=== PATIENT | female | born 1985 | race Caucasian/White ===

== ENCOUNTER → 2019-01-17 | Outpatient (CLI) | payer BC ==
[~2019-01-17] MED LIST: CEPH500 PO; HYDACE5 PO; PREN-16 PO
[2019-01-17 14:05] LABS: Alanine Aminotransfer (ALT/SGP 23 U/L (12-78); Albumin/Globulin Ratio 1.2 (0.8-1.8); Alk Phos 50 U/L (50-136); Anion Gap 3 mmol/L (6-16); Aspartate Aminotrans (AST/SGOT 19 U/L (12-37); Bilirubin, Total 0.7 mg/dL (0.1-1.0); Blood Urea Nitrogen 12 mg/dL (8-24); Bun/Creatinine Ratio 16.8 (12.0-20.0); CHOL/HDL RATIO 3.7; CO2, Blood 26 mmol/L (21-32); Calcium, Blood 8.7 mg/dL (8.5-10.1); Chloride, Blood 109 mmol/L (98-108); Cholesterol 191 mg/dL (50-200); Creatinine, Blood 0.72 mg/dL (0.40-1.00); Globulin, Blood 3.3 g/dL (2.2-4.0); Glomerular Filtration Rate >60 (60-); Glucose, Blood 88 mg/dL (70-99); HDL Cholesterol 52 mg/dL (>39); LDL/HDL RATIO 2.4; Low Density Lipoprotein Chol 126 mg/dL (0-110); Sodium, Blood 138 mmol/L (136-145); Total Protein, Blood 7.3 g/dL (6.4-8.2); Triglycerides 64 mg/dL (30-140); Very Low Density Lipoprot Chol 12 mg/dL (6-28)
== END ==
LOC: LAB SHORT 13:33 → LAB 13:33
PROVIDERS: Hospitalist
DX: Z00.00 Encounter for general adult medical examination without abnormal findings (principal)
CPT/HCPCS: 80053; 80061

== ENCOUNTER → 2021-09-08 | Outpatient (CLI) | payer BC ==
[2021-09-08 15:37] LABS: BASOPHILS ABSOLUTE AUTO 0.03 K/mm3 (0.00-0.23); BASOPHILS PERCENT AUTO 1 % (0-2); EOSINOPHILS ABSOLUTE AUTO 0.08 K/mm3 (0.00-0.68); EOSINOPHILS PERCENT AUTO 1 % (0-6); Hematocrit 39.5 % (33.0-51.0); Hemoglobin 13.4 g/dL (11.5-16.0); IMMATURE GRAN ABSOLUTE AUTO 0.01 K/mm3 (0.00-0.10); IMMATURE GRAN PERCENT AUTO 0 % (0-1); LYMPHOCYTES ABSOLUTE AUTO 1.43 K/mm3 (0.84-5.20); LYMPHOCYTES PERCENT AUTO 25 % (21-46); MONOCYTES PERCENT AUTO 10 % (4-13); Mean Corpuscular HGB 32.5 pg (26.0-34.0); Mean Corpuscular HGB Conc 33.9 g/dL (31.5-36.5); Mean Corpuscular Volume 96 fL (80-100); Mean Platelet Volume 10.8 fL (9.1-12.4); NEUTROPHILS ABSOLUTE AUTO 3.69 K/mm3 (1.96-9.15); NEUTROPHILS PERCENT AUTO 63 % (41-73); Platelet Count 193 K/mm3 (150-400); RDW Coefficient Variation 11.5 % (11.7-14.2); RDW Standard Deviation 40.5 fL (35.1-46.3); Red Blood Cell Count 4.12 M/mm3 (3.80-5.20); White Blood Cell Count 5.84 K/mm3 (4.00-11.30)
[2021-09-08 16:23] LABS: Alanine Aminotransfer (ALT/SGP 38 U/L (12-78); Albumin, Blood 3.7 g/dL (3.4-5.0); Albumin/Globulin Ratio 1.1 (0.8-1.8); Alk Phos 55 U/L (50-136); Anion Gap 5 mmol/L (6-16); Aspartate Aminotrans (AST/SGOT 26 U/L (12-37); Bilirubin, Total 0.6 mg/dL (0.1-1.0); Blood Urea Nitrogen 10 mg/dL (8-24); Bun/Creatinine Ratio 12.1 (12.0-20.0); CO2, Blood 28 mmol/L (21-32); CPK Creatine Kinase 245 U/L (26-193); Calcium, Blood 8.5 mg/dL (8.5-10.1); Chloride, Blood 106 mmol/L (98-108); Creatinine, Blood 0.82 mg/dL (0.40-1.00); Globulin, Blood 3.4 g/dL (2.2-4.0); Glomerular Filtration Rate >60 (60-); Glucose, Blood 94 mg/dL (70-99); Potassium, Blood 4.1 mmol/L (3.5-5.5); Sodium, Blood 139 mmol/L (136-145); Total Protein, Blood 7.1 g/dL (6.4-8.2)
== END ==
LOC: LAB SHORT 11:25 → LAB 11:25
PROVIDERS: Hospitalist
DX: E55.9 Vitamin D deficiency, unspecified (principal); R53.83 Other fatigue; M79.10 Myalgia, unspecified site
CPT/HCPCS: 80053; 82306; 82550; 84443; 85025; 85651

== ENCOUNTER 2024-01-06 06:32 | Day surgery (SDC) | payer BC ==
[~2024-01-06] VITALS: Ht 169 cm; Wt 87.7 kg
[2024-01-06] VITALS (18 sets, daily range): BP systolic 112–135; BP diastolic 36–83
[~2024-01-06 06:32] MED LIST changes: +MULVITA PO
[2024-01-06] MEDS ORDERED: Lactated Ringer's 1,000 ML IV SCH ×2 (06:40→10:15)
[2024-01-06] MEDS ORDERED: CeFAZolin Sodium 2,000 MG in NS 100 ML IV SCH (06:40)
[2024-01-06] MEDS ORDERED: Magnesium250 MG PO (07:18)
[2024-01-06] MEDS ORDERED: THERA-D2000 UNIT PO (07:18)
[2024-01-06] MEDS ORDERED: propofoL 20 ML IV ONE (07:34)
[2024-01-06] MEDS ORDERED: FentaNYL Citrate 50 MCG/ML 2 ML Injection ONE ×2 (07:35→09:06)
[2024-01-06] MEDS ORDERED: Bupivacaine 0.5% HCl 5 MG/ML 30MLVIAL ONE (07:38)
[2024-01-06] MEDS ORDERED: EpiNEPhrine 1 MG/1 ML 1ML Vial ONE (07:50)
[2024-01-06] MEDS ORDERED: Dexamethasone Sod Phos 10 MG/ML 1ML VIAL ONE (08:35)
[2024-01-06] MEDS ORDERED: Ondansetron HCl 2 MG / ML 2ML Vial ONE (09:20)
[2024-01-06] MEDS ORDERED: Sugammadex Sodium 200 MG/2ML SDV (100 MG/ML) ONE (09:20)
[2024-01-06] MEDS ORDERED: Simethicone 80 MG Chew PO PRN (10:20)
[2024-01-06] MEDS ORDERED: DiphenhydrAMINE HCL 25 MG Cap PO PRN (10:20)
[2024-01-06] MEDS ORDERED: OxyCODONE HCL 5 MG TAB PO PRN (10:20)
[2024-01-06] MEDS ORDERED: Ondansetron HCl 2 MG / ML 2ML Vial IV PRN (10:20)
[2024-01-06] MEDS ORDERED: FentaNYL Citrate 50 MCG/ML 2 ML Injection IV PRN (10:20)
[2024-01-06] MEDS ORDERED: Ibuprofen 400 MG Tab PO PRN (10:20)
[2024-01-06] MEDS ORDERED: Acetaminophen 325 MG TABLET PO PRN (10:20)
[2024-01-06] MEDS ORDERED: HYDROcodone 10-APAP 325 TAB PO PRN (10:20)
[2024-01-06] MEDS ORDERED: Ketorolac Tromethamine 30mg Vial ONE (10:27)
[2024-01-06] MEDS ORDERED: Percocet 5-3251 EACH PO (11:36)
[2024-01-06] MEDS ORDERED: IBU800 MG PO (11:36)
[2024-01-06] MEDS ORDERED: Ketorolac Tromethamine 30mg Vial IV SCH (12:00)
[2024-01-06 13:19] LABS: BASOPHILS ABSOLUTE AUTO 0.02 K/mm3 (0.00-0.23); BASOPHILS PERCENT AUTO 0 % (0-2); EOSINOPHILS PERCENT AUTO 0 % (0-6); Hematocrit 37.4 % (33.0-51.0); Hemoglobin 13.2 g/dL (11.5-16.0); IMMATURE GRAN ABSOLUTE AUTO 0.03 K/mm3 (0.00-0.10); IMMATURE GRAN PERCENT AUTO 0 % (0-1); LYMPHOCYTES ABSOLUTE AUTO 0.46 K/mm3 (0.84-5.20); LYMPHOCYTES PERCENT AUTO 4 % (21-46); MONOCYTES ABSOLUTE AUTO 0.09 K/mm3 (0.16-1.47); MONOCYTES PERCENT AUTO 1 % (4-13); Mean Corpuscular HGB 32.9 pg (26.0-34.0); Mean Corpuscular HGB Conc 35.3 g/dL (31.5-36.5); Mean Corpuscular Volume 93 fL (80-100); NEUTROPHILS ABSOLUTE AUTO 11.85 K/mm3 (1.96-9.15); NEUTROPHILS PERCENT AUTO 95 % (41-73); Platelet Count 209 K/mm3 (150-400); RDW Coefficient Variation 11.2 % (11.7-14.2); RDW Standard Deviation 38.2 fL (35.1-46.3); Red Blood Cell Count 4.01 M/mm3 (3.80-5.20); White Blood Cell Count 12.45 K/mm3 (4.00-11.30)
--- NOTE | 2024-01-06 14:15 | NUR ---
Pt meets d/c criteria- has voided x2, tolerating PO, ambulating and pain well controlled. Desires to d/c home at this time. Written and verbal d/c instructions given to patient and all questions answered. Pt feels ready and safe to go home. Taken out in wheelchair to vehicle, d/c'd with spouse.
== END 2024-01-06 14:30 | disposition home or self-care (01) ==
LOC: ORSCMMR 06:32 → ORD 08:00 → BC 11:15 → ORSCMMR 14:30
PROVIDERS: Obstetrics & Gynecology
PROC: 0UT9FZZ Resection of Uterus, Via Natural or Artificial Opening With Percutaneous Endoscopic Assistance (ICD-10-PCS; principal; 2024-01-06 08:00)
PROC: 0UT7FZZ Resection of Bilateral Fallopian Tubes, Via Natural or Artificial Opening With Percutaneous Endoscopic Assistance (ICD-10-PCS; principal; 2024-01-06 08:00)
DX: N92.0 Excessive and frequent menstruation with regular cycle (principal); R10.2 Pelvic and perineal pain; N72 Inflammatory disease of cervix uteri; N73.6 Female pelvic peritoneal adhesions (postinfective); F41.9 Anxiety disorder, unspecified; E66.9 Obesity, unspecified; Z68.30 Body mass index [BMI] 30.0-30.9, adult
CPT/HCPCS: 36415; 85025; 88307; A9270; J0171; J0690; J1100; J1885; J2405; J2704; J3010; J7120